=== PATIENT | male | born 2005 | race Two or more races ===

== ENCOUNTER 2023-04-09 00:25 | Emergency (ER) | payer SELFPAY ==
[~2023-04-09] VITALS: Ht 157.5 cm; Wt 59.0 kg
[2023-04-09 00:44] VITALS: TEMP 98.1
[2023-04-09] MEDS ORDERED: HYDROCODONE/APAP 5/325MG TABLET ONE (00:52)
[2023-04-09] MEDS: HYDROCODONE/APAP 5/325MG TABLET PO ONE (00:52)
[2023-04-09 02:24] VITALS: BP 123/70; O2SAT 99
== END 2023-04-09 02:25 | disposition home or self-care (01) ==
LOC: ER 00:31
DX: S09.8XXA Other specified injuries of head, initial encounter (principal); Y04.8XXA Assault by other bodily force, initial encounter; Y93.89 Activity, other specified; Y92.89 Other specified places as the place of occurrence of the external cause; Y99.8 Other external cause status
CPT/HCPCS: 70450-TC; 72125-TC